=== PATIENT | female | born 1940 ===

== ENCOUNTER → 2017-09-12 | Outpatient (CLI) | payer OTHER ==
[~2017-09-12] MED LIST: APAP650; BACTRIM DS TAB1 EACH; DOXYCYCLINE 10100 MG; DYRENIUM50 MG; GLUCOSAMINE HC500 MG; KLOR-CON 1010 MEQ; LIPITOR10 MG; MAXZIDE-25 MG1 EACH PO; NORVASC2.5 MG; NORVASC5 MG; NYAMYC15 GM; TRAMADOL 50 MG50 MG
--- NOTE | ~2017-09-12 | HC ---
[facility] [place] [address] CONSULTATION Name: BELLA RILEY Room #: [facility] [id number] Admission: 09/12/17 Attend Phys: Magen Friend Discharge: Date of : 36 Report #: [id number] THIS REPORT FOR: //name// CC: ISABELLA physician/PCP Magen Rosado MD DATE OF SERVICE: 09/12/2017 INFECTIOUS DISEASE CONSULTATION REASON FOR CONSULTATION: MRSA, left heel. HISTORY OF PRESENT ILLNESS: The patient is a 77-year-old white woman who undergoes surgical intervention at [facility], 05/15/2017, consistent of left foot medializing calcaneal osteotomy, left foot posterior tibial tendon reconstruction, with flexor digitorum longus tendon transfer. The patient requires placement of a screw on the left os calcis. The patient goes on developing pain on the left heel and did develop some drainage. The patient was initially prescribed Bactrim DS 2 times daily, and after a visit with Dr. Rosado yesterday, she was given doxycycline 100 mg p.o. b.i.d. The patient has continued to have swelling of the left ankle and some focal pain. She is attending physical therapy. The patient undergoes culture of the drainage from the left heel area on 08/28, and the report indicates growth of 4+ of methicillin-resistant Staphylococcus aureus; resistant to tetracycline; sensitive to rifampin; sensitive to trimethoprim, vancomycin and linezolid. It appears that patient has not had any blood tests since possibly the hospitalization at [facility]. I discussed the need of obtaining a baseline laboratory tests to assess ESR, CRP, possibility of presence of diabetes or not. The patient relates that she did experience complication from the oral antibiotic consisting of thrush that was treated with nystatin swish and swallow. Currently, the oral lesions are better. The drainage per left heel wound has stopped. DRUG ALLERGIES: None listed. MEDICATIONS: Doxycycline 100 p.o. b.i.d., tramadol p.r.n., aspirin 325 mg daily, Percocet 7.5/325 p.r.n., glimepiride, omeprazole, pravastatin 20 mg daily, lisinopril, tamsulosin and metoprolol 25 mg daily. PAST MEDICAL HISTORY: Hypertension, dyslipidemia, question diabetes, right knee osteoarthritis and surgical intervention for fractured wrist. [address] [address] CONSULTATION Name: BELLA RILEY Room #: REG CLI [facility]#: [id number] Admission: 09/12/17 Attend Phys: Magen Friend Discharge: Date of : 36 Report #: [id number] REVIEW OF SYSTEMS: Noncontributory. SOCIAL HISTORY: Three children. They live in town. The patient comes to office with . PHYSICAL EXAMINATION: GENERAL: A well-developed woman, not toxic looking, no distress. VITAL SIGNS: Weight 164.8 pounds, BP 116/81, pulse 75, temperature 97.5 and O2 saturation 100% on room air. HEENT: Upper bridge. No evidence of thrush. NECK: Supple. LUNGS: Clear. BREASTS: Deferred. HEART: S1 and S2. No gallop. ABDOMEN: Soft. No masses or megaly. PELVIC: Deferred. RECTAL: Deferred. EXTREMITIES: Some swelling of the left ankle. On the lateral aspect of the left ankle, there is an area of skin peeling. There is no drainage whatsoever. There is no erythema. Minimal point tenderness. ASSESSMENT: 1. Methicillin-resistant Staphylococcus aureus infection versus colonization, left heel, improved. 2. Methicillin-resistant Staphylococcus aureus isolated, resistant to tetracycline, no sensitivity to doxycycline or minocycline. 3. History of thrush. 4. Osteoarthritis, right knee. 5. Dyslipidemia. 6. Possible diabetes mellitus type 2. 7. History of lateral wrist fracture. SUGGESTION: Recommend patient had some baseline laboratory testing consistent of CBC, ESR, CRP and CMP. Since no sensitivity to doxycycline done, I suspect doxycycline may be a choice of antibiotic since the EDUARDO against this antibiotic is always significantly better than tetracycline The patient must not take doxycycline close to calcium, magnesium, iron-containing medication. She must remain upright or at least sitting and not reclining for at least an hour after taking doxycycline. Prescribed Diflucan 200 mg p.o. daily, #10, should thrush recurs. I would like to visit with the patient again in about [address] [address] CONSULTATION Name: OSVALDOBELLA Room #: REG VIRIDIANA Patel#: [id number] Admission: 09/12/17 Attend Phys: Magen Friend Discharge: Date of : 36 Report #: [id number] Rosado, thank you for requesting my suggestions in the care of your patient. <ELECTRONICALLY SIGNED> By: Magen Novak MD 09/13/17 1035 [id number] Magen Novak MD /nt
[2017-09-12 12:49] LABS: ABSOLUTE NEUTROPHILS 4.2 thou/uL (1.4-8.2); BASOPHILS 0.5 % (0.0-2.0); EOSINOPHILS 2.9 % (0.0-3.0); HEMATOCRIT 42.8 % (37.0-47.0); HEMOGLOBIN 14.5 gm/dL (12.0-15.0); LYMPHOCYTES 16.9 % (24.0-44.0); MCH 29.1 pg (26.0-34.0); MCHC 33.8 g/dL (28.0-37.0); MCV 86.2 fL (80.0-100.0); MONOCYTES 8.6 % (1.0-8.0); PLATELET COUNT 204 thou/uL (150-400); POLYS 71.1 % (36.0-66.0); RBC 4.96 mil/uL (4.20-5.00); RDW 14.1 % (10.5-14.5); WBC 5.9 thou/uL (4.0-11.0)
[2017-09-12 13:05] LABS: ALBUMIN 3.7 g/dL (3.4-5.0); CALCIUM 10.4 mg/dL (8.5-10.1); CREATININE 0.7 mg/dL (0.6-1.0); TOTAL BILIRUBIN 0.3 mg/dL (<0.1-1.0); TOTAL PROTEIN 7.3 g/dL (6.4-8.2)
== END ==
LOC: SEN 08:41
PROVIDERS: Internal Medicine Infectious Disease
DX: M17.11 Unilateral primary osteoarthritis, right knee (principal); E78.5 Hyperlipidemia, unspecified